=== PATIENT | female | born 1955 | race Two or more races ===

== ENCOUNTER 2019-08-07 18:23 | Emergency (ER) | payer BC, MEDICARE ==
[~2019-08-07] VITALS: Ht 147.3 cm; Wt 52.6 kg
[2019-08-07] MEDS ORDERED: KETOROLAC 30 MG/1 ML IM ONE (19:00)
[2019-08-07] MEDS ORDERED: DIAZEPAM 5 MG TABLET PO ONE (19:00)
--- NOTE | 2019-08-07 22:03 | NUR ---
PT TO ROOM FROM LOBBY
[2019-08-07] MEDS ORDERED: DIAZEPAM 5 MG TABLET ONE (22:15)
[2019-08-07] MEDS ORDERED: KETOROLAC 30 MG/1 ML ONE (22:16)
[2019-08-07] MEDS ORDERED: LIDODERM 5% PATCH TD ONE ×2 (22:18→22:30)
[2019-08-07] MEDS ORDERED: ACETAMINOPHEN 500 MG TABLET ONE (22:18)
[2019-08-07] MEDS ORDERED: ACETAMINOPHEN 500 MG TABLET PO ONE (22:30)
--- NOTE | 2019-08-07 22:39 | NUR ---
PT MEDICATED PER EMAR. 5 RIGHTS ADDRESSED. ALSO PROVIDED WITH WARM BLANKETS. DENIES ANY OTHER NEEDS AT THIS TIME
--- NOTE | 2019-08-07 23:10 | NUR ---
PT SLEEPING. JUSTOUGHER REPORTS PT APPEARS MUCH MORE COMFORTABLE. CHART UP FOR RECHECK. WILL CONTINUE TO MONITOR.
[2019-08-07 23:50] VITALS: BP 105/74
--- NOTE | 2019-08-08 00:24 | NUR ---
Patient/Caregiver given discharge instructions and they have confirmed that they understand the instructions. Patient ambulatory with steady gait.
== END 2019-08-08 00:26 | disposition home or self-care (01) ==
LOC: ED 23:09
DX: M54.41 Lumbago with sciatica, right side (principal)
CPT/HCPCS: 72110; 96372; 99284; J1885